=== PATIENT | male | born 1965 | race Caucasian/White ===

== ENCOUNTER 2017-02-11 08:34 | Emergency (ER) | payer MEDICARE, OTHER ==
[2017-02-11] MEDS ORDERED: Adacel (T-DAP) 0.5 ML VIAL ONE (10:28)
--- NOTE | 2017-02-11 10:46 | CT ---
CT HEAD NONCONTRAST: HISTORY: Fall. Head injury. FINDINGS: There is no evidence of acute intracranial hemorrhage or infarct. The ventricles appear normal in s ize, shape, and position. There is no mass effect or shift of midline structures. Visualized paran william sinuses remain well aerated. IMPRESSION: No acute intracranial abnormalities are demonstrated. POS: [facility]
--- NOTE | 2017-02-11 10:49 | CT ---
CT CERVICAL SPINE: HISTORY: Patient with fall with neck pain. Axial images are obtained with coronal and sagittal reconstructio ns. 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 No significant evidence of acute cervical sp ine fracture is seen. IMPRESSION: No significant evidence of acute cervical spine pathology is seen. POS: [facility]
== END 2017-02-11 10:52 | disposition home or self-care (01) ==
LOC: NAV ERS 08:34
DX: S00.81XA Abrasion of other part of head, initial encounter (principal); F41.9 Anxiety disorder, unspecified; F31.9 Bipolar disorder, unspecified; F17.210 Nicotine dependence, cigarettes, uncomplicated; W18.00XA Striking against unspecified object with subsequent fall, initial encounter
CPT/HCPCS: 70450; 72125; 90471; 90715

== ENCOUNTER 2017-03-14 14:29 | Emergency (ER) | payer MEDICARE | END 2017-03-14 15:10 | disposition home or self-care (01) | LOC: NAV ERS 14:29 | DX: Z53.21 Procedure and treatment not carried out due to patient leaving prior to being seen by health care provider (principal) ==

== ENCOUNTER 2018-05-05 02:20 | Emergency (ER) | payer MEDICARE, MEDICAID ==
[2018-05-05] MEDS ORDERED: methylPREDNISolone Sod Succ/PF 125 MG/2 ML VIAL ONE (02:46)
[2018-05-05] MEDS ORDERED: Albuterol Sulfate 2.5 mg/0.5 ml Neb ONE (02:49)
[2018-05-05] MEDS ORDERED: Sodium Chloride For Inhalation 0.9% 3 ML NEB ONE (02:49)
[2018-05-05] MEDS ORDERED: Azithromycin 250 MG TAB ONE (03:09)
--- NOTE | 2018-05-05 10:17 | RAD ---
ONE VIEW CHEST: HISTORY: Fever. Cough. COMPARISON: 09/16/2008. FINDINGS: Slight elongation of the aorta. Normal cardiac silhouette. Pulmonary vessels and hilum are normal. Costophrenic angles are clear. No consolidation or mass. No pneumothorax or osseous abnormalities. IMPRESSION: No acute cardiopulmonary process. POS: [facility]
== END 2018-05-05 03:25 | disposition home or self-care (01) ==
LOC: NAV ERS 02:20
DX: J20.9 Acute bronchitis, unspecified (principal); I10 Essential (primary) hypertension; F41.9 Anxiety disorder, unspecified; F31.9 Bipolar disorder, unspecified; F17.210 Nicotine dependence, cigarettes, uncomplicated; Z79.899 Other long term (current) drug therapy
CPT/HCPCS: 71045; 87804; 93005; 94640; 94760; 96372; J2930; J7611; J7620